=== PATIENT | female | born 1990 | race Caucasian/White ===

== ENCOUNTER 2019-07-08 21:27 | Inpatient (IN) | payer BC, OTHER ==
[2019-07-08] MEDS ORDERED: NORMAL SALINE 1000 ML 1,000 ML IV ONE ×2 (22:27→23:33)
[2019-07-08] MEDS ORDERED: KETOROLAC TROMETHAMINE INJ/PF 30 MG/1 ML SDV IV ONE (22:27)
--- NOTE | 2019-07-08 22:32 | ER Document Report ---
ED GI/ - General Chief Complaint: Flank Pain Stated Complaint: FLANK PAIN Time Seen by Provider: 07/08/19 22:14 Mode of Arrival: Ambulatory Information source: Patient, Parent, Friend Notes: This 28-year-old female patient comes emergency room complaining of right flank pain. She reports onset Wednesday evening of UTI symptoms consisting of suprapubic pressure, frequency, dysuria, and a cloudy urine. She did not seek treatment for this until Wednesday, yesterday. She did report night having some nausea vomiting sweating. Yesterday she started Macrodantin. She has been taking Tylenol and Motrin regularly, her last dose of Motrin was at 2 PM today, last Tylenol was at 6 PM today. She reports she has been having shaking chills and right flank pain. TRAVEL OUTSIDE OF THE [place] IN LAST 30 DAYS: No - Related Data Allergies/Adverse Reactions: No Known Allergies Allergy (Unverified 07/09/19 00:25) Past Medical History - General Information source: Patient, Parent, Friend - Social History Smoking Status: Never Smoker Cigarette use (# per day): No Chew tobacco use (# tins/day): No Smoking Education Provided: No Frequency of alcohol use: Occasional Drug Abuse: None Occupation: Student Lives with: Parents Family History: Reviewed & Not Pertinent Patient has suicidal ideation: No Patient has homicidal ideation: No - Medical History Medical History: Negative Surgical Hx: Negative Review of Systems - Review of Systems Constitutional: Chills, Fever EENT: No symptoms reported Cardiovascular: No symptoms reported Respiratory: No symptoms reported Gastrointestinal: See HPI, Nausea, Vomiting Genitourinary: Burning, Dysuria, Frequency, Flank pain, Urgency Female Genitourinary: Last menstrual period - 2 weeks ago, patient has the Mirena IUD Musculoskeletal: No symptoms reported Skin: No symptoms reported Hematologic/Lymphatic: No symptoms reported Neurological/Psychological: No symptoms reported Physical Exam - Vital signs Vitals: Temp Pulse Resp BP Pulse Ox 100.8 F H 128 H 16 150/113 H 99 07/08/19 21:40 07/08/19 21:40 07/08/19 21:40 07/08/19 21:40 07/08/19 21:40 Interpretation: Tachycardic, Febrile - General General appearance: Appears well, Alert In distress: None - HEENT Head: Normocephalic, Atraumatic Eyes: Normal Pupils: PERRL Neck: Normal - Respiratory Respiratory status: No respiratory distress Breath sounds: Normal - Cardiovascular Rhythm: Regular, Tachycardia Heart sounds: Normal auscultation Murmur: No - Abdominal Inspection: Morbidly Obese Bowel sounds: Normal Tenderness: Tender - Tenderness to palpate in the right upper quadrant of the abdomen. Mildly uncomfortable to palpate in the suprapubic region. - Back Back: CVA tenderness - Right CVA percussion tenderness - Extremities General upper extremity: Normal inspection General lower extremity: Normal inspection - Neurological Neuro grossly intact: Yes - Psychological Associated symptoms: Normal affect, Normal mood - Skin Skin Temperature: Warm Skin Moisture: Moist Skin Color: Normal Course - Vital Signs Vital signs: Temp Pulse Resp BP Pulse Ox 103.1 F H 128 H 23 H 123/67 97 07/08/19 22:27 07/08/19 21:40 07/09/19 00:01 07/09/19 00:01 07/09/19 00:01 - Laboratory Result Diagrams: 07/08/19 22:35 07/08/19 22:35 Laboratory results interpreted by me: 07/08/19 07/08/19 07/08/19 22:25 22:35 22:35 WBC 17.2 H Band Neutrophils % 2 L Lymphocytes % (Manual) 10 L Abs Neuts (Manual) 13.4 H Abs Monocytes (Manual) 1.9 H TSH 6.43 H Urine Protein 100 H Urine Ketones 20 H Urine Blood LARGE H Urine Nitrite POSITIVE H Urine Urobilinogen 4.0 H Ur Leukocyte Esterase MODERATE H - Diagnostic Test Radiology reviewed: Image reviewed, Reports reviewed - CT scan of abdomen pelvis without contrast shows edematous right kidney with perinephric stranding. There is no hydronephrosis or hydroureter. Discharge - Discharge Clinical Impression: Pyelonephritis, Tachycardia Leukocytosis Qualifiers: Leukocytosis type: bandemia Qualified Code(s): D72.825 - Bandemia Fever Qualifiers: Fever type: unspecified Qualified Code(s): R50.9 - Fever, unspecified Sepsis Qualifiers: Sepsis type: sepsis due to unspecified organism Sepsis acute organ dysfunction status: without acute organ dysfunction Qualified Code(s): A41.9 - Sepsis, unspecified organism Condition: Stable Disposition: ADMITTED INPATIENT Admitting Provider: Nuria (Hospitalist) Unit Admitted: Medical Floor
[2019-07-08] MEDS ORDERED: ACETAMINOPHEN 325 MG TABLET PO ONE (22:34)
[2019-07-08] MEDS ORDERED: CEFTRIAXONE 1 GM/D5W RTU 1 GM/50 ML RTUPB IV ONE (22:35)
[2019-07-08 22:45] LABS: APPEARANCE,URINE SLIGHTLY-CLOUDY; BILIRUBIN,URINE NEGATIVE (NEGATIVE); COLOR,URINE AMBER; GLUCOSE, URINE NEGATIVE (NEGATIVE); KETONES,URINE 20 mg/dL (NEGATIVE); LEUKOCYTE ESTERASE,URINE MODERATE (NEGATIVE); NITRITE,URINE POSITIVE (NEGATIVE); PROTEIN,URINE 100 mg/dL (NEGATIVE); URINE SPECIFIC GRAVITY 1.015
[2019-07-08 22:54] LABS: HEMATOCRIT 38.9 % (36.0-47.0); MEAN CORPUSCULAR HEMOGLOBIN 28.6 pg (27.0-33.4); MEAN CORPUSCULAR HGB CONC 33.5 g/dL (32.0-36.0); MEAN CORPUSCULAR VOLUME 86 fl (80-97); PLATELET COUNT 316 10^3/uL (150-450); RED BLOOD COUNT 4.56 10^6/uL (3.72-5.28); RED CELL DISTRIBUTION WIDTH 13.5 % (11.5-14.0); WHITE BLOOD COUNT 17.2 10^3/uL (4.0-10.5)
[2019-07-08] MEDS ORDERED: ONDANSETRON HCL INJ/PF 4 MG/2 ML SDV IV ONE (22:54)
[2019-07-08 23:05] LABS: ALKALINE PHOSPHATASE 82 U/L (38-126); ANION GAP 12 (5-19); ASPARTATE AMINO TRANSFERASE 20 U/L (14-36); BILIRUBIN,DIRECT 0.2 mg/dL (0.0-0.4); BILIRUBIN,TOTAL 0.5 mg/dL (0.2-1.3); BLOOD UREA NITROGEN 15 mg/dL (7-20); CALCIUM 9.4 mg/dL (8.4-10.2); CARBON DIOXIDE 23 mmol/L (22-30); CHLORIDE 103 mmol/L (98-107); CREATINE KINASE 83 U/L (30-135); GLUCOSE 107 mg/dL (75-110); POTASSIUM 3.8 mmol/L (3.6-5.0); TOTAL PROTEIN 6.8 g/dL (6.3-8.2)
[2019-07-08 23:19] LABS: ABSOLUTE LYMPHOCYTES# (MANUAL) 1.9 10^3/uL (0.5-4.7); ABSOLUTE MONOCYTES # (MANUAL) 1.9 10^3/uL (0.1-1.4); BAND NEUTROPHILS % (MANUAL) 2 % (3-5); BASOPHILS % (MANUAL) 0 % (0-2); EOSINOPHILS % (MANUAL) 0 % (0-6); LYMPHOCYTES % (MANUAL) 10 % (13-45); MONOCYTES % (MANUAL) 11 % (3-13); PLATELET COMMENT ADEQUATE; SEGMENTED NEUTROPHILS % (MAN) 76 % (42-78); TOTAL CELLS COUNTED 100
[2019-07-08 23:20] LABS: POIKILOCYTOSIS SLIGHT; STOMATOCYTES SLIGHT
[2019-07-08 23:22] LABS: FREE T3 4.6 pg/mL (2.77-5.27); FREE T4 (FREE THYROXINE) 1.3 ng/dL (0.78-2.19)
[2019-07-08 23:36] LABS: THYROID STIMULATING HORMONE 6.43 uIU/mL (0.47-4.68)
--- NOTE | 2019-07-09 00:17 | RADIOLOGY REPORT (SQ) ---
EXAM DESCRIPTION: CT ABDOMEN PELVIS WITHOUT IV CONTRAST COMPLETED DATE/TME: 07/08/2019 23:07 CLINICAL HISTORY: 28 years, Female, R flank pain, UTI, hematuria COMPARISON: None. TECHNIQUE: Axial CT images of the abdomen and pelvis were obtained without IV contrast. Sagittal and coronal reformats were performed. DL 1238 Images stored on PACS. All CT scanners at this facility use dose modulation, iterative reconstruction, and/or weight based dosing when appropriate to reduce radiation dose to as low as reasonably achievable (ALARA). [facility]: Dose Right [facility]: CareDose [facility]: Dose Right [facility]: Teradose 4D [facility]: [employer] LIMITATIONS: None. FINDINGS: The lung bases are clear. The liver is hypodense. The gallbladder, pancreas, spleen, and adrenal glands are unremarkable. The right kidney is mildly edematous with mild perinephric stranding. The left kidney appears unremarkable. No evidence of urolithiasis or hydronephrosis bilaterally. There is no intraperitoneal free air or fluid. There is no lymphadenopathy. The abdominal aorta is normal in caliber. The stomach, small bowel and appendix are unremarkable. The colon is incompletely distended. An IUD is noted. The urinary bladder and bilateral adnexa appear unremarkable. No acute fracture or subluxation. IMPRESSION: Mildly edematous right kidney with perinephric stranding. No evidence of urolithiasis or hydronephrosis bilaterally. This may be due to a recently passed stone or a UTI/pyelonephritis. Fatty liver. TECHNICAL DOCUMENTATION: Quality ID # 436: Final reports with documentation of one or more dose reduction techniques (e.g., Automated exposure control, adjustment of the mA and/or kV according to patient size, use of iterative reconstruction technique) copyright 2011 [employer]- All Rights Reserved
[2019-07-09] MEDS ORDERED: MAG HYDROX/AL HYDROX/SIMETH SUSP 30 ML UDCUP PO PRN (00:29)
[2019-07-09] MEDS ORDERED: ACETAMINOPHEN 650 MG SUPP.RECT PR PRN (00:29)
[2019-07-09] MEDS ORDERED: MAGNESIUM HYDROXIDE SUSP 30 ML UDCUP PO PRN (00:29)
[2019-07-09] MEDS ORDERED: ONDANSETRON HCL INJ/PF 4 MG/2 ML SDV IV PRN (00:29)
[2019-07-09] MEDS ORDERED: ZOLPIDEM TARTRATE 5 MG TABLET PO PRN (00:29)
--- NOTE | 2019-07-09 03:14 | PDOC H&P ---
History of Present Illness Admission Date/PCP: 07/09/19 00:06 GAGANDEEP ARAUJO, KRISTIE-C Patient complains of: Right flank pain, fever and chills with vomiting History of Present Illness: PARVEZ BHATT is a 28 year old female with history of Sharon's thy roiditis and thyroid nodules and noncompliance to medical therapy who presented to the emergency room with acute onset of urinary frequency with associated dysuria and urgency as well as suprapubic pressure. She was seen by her primary care physician on Wednesday night and was given Macrobid which she has been taking without significant improvement. Since night she started having back pain mainly in the right flank with associated fever and chills. She admits to vomiting. Upon presentation emergency room her temperature was 103.1 with pulse of 128 respiratory rate of 23 blood pressure 123/67 and pulse oximetry 97% on room air. Labs revealed significant leukocytosis 17.2 with neutrophilia and CMP was within normal. TSH was 6.43 with a free T4 of 1.3 and free T3 of 4.6. Urinalys is strongly positive for UTI. The patient was given a gram of IV Rocephin as well as hydration with IV normal saline and 15 mg of IV Toradol as well as 975 mg of p.o. Tylenol and 8 mg of IV Zofran.. She had urine and blood cultures drawn. The patient will be admitted to a medically monitored bed for further evaluation and management. Past Medical History Past Medical History: #1 Sharon's thyroiditis 2. Thyroid nodule 3. Noncompliance Past Surgical History Past Surgical History: Reports: Thyroidectomy Social History Lives with: Parents Smoking Status: Never Smoker Family History Family History: CAD, CVA, DM, Hypertension, Malignancy Parental Family History Reviewed: Yes Children Family History Reviewed: Yes Sibling(s) Family History Reviewed.: Yes Medication/Allergy Allergies/Adverse Reactions: No Known Allergies Allergy (Unverified 07/09/19 00:25) Review of Systems Review of Systems: As per history of present illness. All pertinent systems were reviewed above. Constitutional, HEENT, cardiovascular, respiratory, GI, , musculoskeletal, neuro, psychiatric, endocrine, integumentary and hematologic systems were reviewed and are otherwise negative/unremarkable except for positive findings mentioned above in the HPI. Physical Exam Vital Signs: Temp Pulse Resp BP Pulse Ox 103.1 F H 128 H 23 H 123/67 97 07/08/19 22:27 07/08/19 21:40 07/09/19 00:01 07/09/19 00:01 07/09/19 00:01 Intake & Output 07/07/19 07/08/19 07/09/19 06:59 06:59 06:59 Intake Total 1050 Balance 1050 Weight 159.9 kg Exam: Generally: Pleasant young obese female in mild distress from pain. Vital signs-as listed Head - atraumatic, normocephalic. Pupils - equal, round and reactive to light and accommodation. Extraocular movements are intact. No scleral icterus. Oropharynx - moist mucous membranes and tongue. No pharyngeal erythema or exudate. Neck - supple. No JVD. Carotid pulses 2+ bilaterally. No carotid bruits. No palpable thyromegaly or lymphadenopathy. Cardiovascular - regular rate and rhythm. Normal S1 and S2. No murmurs, gallops or rubs. Lungs - clear to auscultation bilaterally. Abdomen - soft and nontender. Positive bowel sounds. No palpable organomegaly or masses. She had mild right CVA tenderness Extremities - no pitting edema, clubbing or cyanosis. Neuro - grossly non-focal. Skin - no rashes. Breast, pelvic and rectal - deferred Results Laboratory Results: 07/08/19 22:35 07/08/19 22:35 07/08/19 07/08/19 07/08/19 22:25 22:35 22:35 WBC 17.2 H RBC 4.56 Hgb 13.0 Hct 38.9 MCV 86 MCH 28.6 MCHC 33.5 RDW 13.5 Plt Count 316 Seg Neutrophils % Not Reportable Lymphocytes % Not Reportable Monocytes % Not Reportable Eosinophils % Not Reportable Basophils % Not Reportable Absolute Neutrophils Not Reportable Absolute Lymphocytes Not Reportable Absolute Monocytes Not Reportable Absolute Eosinophils Not Reportable Absolute Basophils Not Reportable Sodium 138.4 Potassium 3.8 Chloride 103 Carbon Dioxide 23 Anion Gap 12 BUN 15 Creatinine 1.02 Est GFR ( Amer) > 60 Est GFR (Non-Af Amer) > 60 Glucose 107 Lactic Acid Calcium 9.4 Total Bilirubin 0.5 AST 20 Alkaline Phosphatase 82 Total Protein 6.8 Albumin 4.0 TSH Free T4 Free T3 pg/mL Urine Color JR Urine Appearance SLIGHTLY-CLOUDY Urine pH 6.0 Ur Specific [place] 1.015 Urine Protein 100 H Urine Glucose (UA) NEGATIVE Urine Ketones 20 H Urine Blood LARGE H Urine Nitrite POSITIVE H Ur Leukocyte Esterase MODERATE H Urine WBC (Auto) 52 Urine RBC (Auto) >182 07/08/19 07/08/19 22:35 22:35 WBC RBC Hgb Hct MCV MCH MCHC RDW Plt Count Seg Neutrophils % Lymphocytes % Monocytes % Eosinophils % Basophils % Absolute Neutrophils Absolute Lymphocytes Absolute Monocytes Absolute Eosinophils Absolute Basophils Sodium Potassium Chloride Carbon Dioxide Anion Gap BUN Creatinine Est GFR ( Amer) Est GFR (Non-Af Amer) Glucose Lactic Acid 1.0 Calcium Total Bilirubin AST Alkaline Phosphatase Total Protein Albumin TSH 6.43 H Free T4 1.30 Free T3 pg/mL 4.60 Urine Color Urine Appearance Urine pH Ur Specific [place] Urine Protein Urine Glucose (UA) Urine Ketones Urine Blood Urine Nitrite Ur Leukocyte Esterase Urine WBC (Auto) Urine RBC (Auto) 07/08/19 22:35 Creatine Kinase 83 Impressions: Abdomen/Pelvis CT 07/08/19 23:07 IMPRESSION: Mildly edematous right kidney with perinephric stranding. No evidence of urolithiasis or hydronephrosis bilaterally. This may be due to a recently passed stone or a UTI/pyelonephritis. Fatty liver. TECHNICAL DOCUMENTATION: Quality ID # 436: Final reports with documentation of one or more dose reduction techniques (e.g., Automated exposure control, adjustment of the mA and/or kV according to patient size, use of iterative reconstruction technique) copyright 2011 [employer]- All Rights Reserved Assessment and Plan - Diagnosis (1) Pyelonephritis Is this a current diagnosis for this admission?: Yes Plan: The patient will be admitted to medical monitor bed. She was placed on hydration with IV normal saline containing antibiotic therapy with IV Rocephin. Pain management will be provided. Urine culture sensitivity as well as blood cultures will be followed. (2) Sepsis Qualifiers: Sepsis type: sepsis due to unspecified organism Sepsis acute organ dysfunction status: without acute organ dysfunction Qualified Code(s): A41.9 - Sepsis, unspecified organism Is this a current diagnosis for this admission?: Yes Plan: The patient will be placed on IV Rocephin and follow urine and blood cultures. (3) Sharon's thyroiditis Is this a current diagnosis for this admission?: Yes Plan: The patient TSH was 6.43 with normal free T4 and free T3. (4) DVT prophylaxis Is this a current diagnosis for this admission?: Yes Plan: Sub cutaneous Lovenox - Time Time Spent with patient: 35 or more minutes Medications reviewed and adjusted accordingly: Yes Anticipated discharge: Home Within: within 72 hours - Inpatient Certification Based on my medical assessment, after consideration of the patient's comorbidities, presenting symptoms, or acuity I expect that the services needed warrant INPATIENT care.: Yes I certify that my determination is in accordance with my understanding of Medicare's requirements for reasonable and necessary INPATIENT services [42 CFR 412.3e].: Yes Medical Necessity: Need For IV Fluids, Need for Pain Control, Need for IV Antibiotics Post Hospital Care: D/C or Transfer Summary - Plan Summary Plan Summary: The plan of care was discussed in details with the patient. I answered all questions. The patient agreed to proceed with the above-mentioned plan. The patient is presumably full code. This note was created by [employer] dictating software and may contain typo errors that may have not been proofread.
[2019-07-09] MEDS: ACETAMINOPHEN 325 MG TABLET PO PRN ×3 (03:50→22:35)
[2019-07-09] MEDS: NORMAL SALINE 1000 ML 1,000 ML IV PRN ×2 (09:55→20:48)
[2019-07-09] MEDS: ENOXAPARIN SODIUM INJ 40 MG/0.4 ML DISP.SYRIN SUBCUT SCH (12:09)
--- NOTE | 2019-07-09 16:56 | PDOC PROGRESS REPORT ---
Subjective Progress Note for:: 07/09/19 Subjective:: Patient is a 28-year-old female with past medical history of Sharon's thyroiditis, medication noncompliance, and super morbid obesity who was admitted 07/08/2019 for sepsis secondary to pyelonephritis. Patient was seen on morning rounds. She is found resting in bed comfortably on room air. She tells me that she is feeling much better today. She does continue to have chills, though without documented fever, right flank pain, and fatigue. She reports that her pain is significantly improved from yesterday. She does have occasional dysuria. She denies chest pain, palpitations, dyspnea, cough, abdominal pain, nausea and vomiting. She has no new questions or concerns. No concerns per nursing. Reason For Visit: ACUTE PYELONEPHRITIS,SEPSIS Physical Exam Vital Signs: Temp Pulse Resp BP Pulse Ox 99.4 F 101 H 19 119/55 L 94 07/09/19 11:53 07/09/19 11:53 07/09/19 11:53 07/09/19 11:53 07/09/19 11:53 Intake & Output 07/08/19 07/09/19 07/10/19 06:59 06:59 06:59 Intake Total 1050 Output Total 650 Balance 1050 -650 Weight 165.2 kg General appearance: PRESENT: no acute distress, cooperative, morbidly obese, well-developed, well-nourished Head exam: PRESENT: atraumatic, normocephalic Eye exam: PRESENT: conjunctiva pink, EOMI, PERRLA. ABSENT: scleral icterus Ear exam: PRESENT: normal external ear exam Mouth exam: PRESENT: moist, tongue midline Neck exam: ABSENT: carotid bruit, JVD, lymphadenopathy, thyromegaly Respiratory exam: PRESENT: clear to auscultation ivelisse, symmetrical, unlabored. ABSENT: rales, rhonchi, wheezes Cardiovascular exam: PRESENT: RRR, +S1, +S2. ABSENT: diastolic murmur, rubs, systolic murmur Pulses: PRESENT: normal dorsalis pedis pul Vascular exam: PRESENT: normal capillary refill GI/Abdominal exam: PRESENT: normal bowel sounds, soft. ABSENT: distended, guarding, mass, organolmegaly, rebound, tenderness Rectal exam: PRESENT: deferred Gentrourinary exam: PRESENT: other - Right CVA tenderness Extremities exam: PRESENT: full ROM. ABSENT: calf tenderness, clubbing, pedal edema Neurological exam: PRESENT: alert, awake, oriented to person, oriented to place, oriented to time, oriented to situation, CN II-XII grossly intact. ABSENT: motor sensory deficit Psychiatric exam: PRESENT: appropriate affect, normal mood. ABSENT: homicidal ideation, suicidal ideation Skin exam: PRESENT: dry, intact, warm. ABSENT: cyanosis, rash Results Laboratory Results: 07/08/19 22:35 07/08/19 22:35 07/08/19 07/08/19 07/08/19 22:25 22:35 22:35 WBC 17.2 H RBC 4.56 Hgb 13.0 Hct 38.9 MCV 86 MCH 28.6 MCHC 33.5 RDW 13.5 Plt Count 316 Seg Neutrophils % Not Reportable Lymphocytes % Not Reportable Monocytes % Not Reportable Eosinophils % Not Reportable Basophils % Not Reportable Absolute Neutrophils Not Reportable Absolute Lymphocytes Not Reportable Absolute Monocytes Not Reportable Absolute Eosinophils Not Reportable Absolute Basophils Not Reportable Sodium 138.4 Potassium 3.8 Chloride 103 Carbon Dioxide 23 Anion Gap 12 BUN 15 Creatinine 1.02 Est GFR ( Amer) > 60 Est GFR (Non-Af Amer) > 60 Glucose 107 Lactic Acid Calcium 9.4 Total Bilirubin 0.5 AST 20 Alkaline Phosphatase 82 Total Protein 6.8 Albumin 4.0 TSH Free T4 Free T3 pg/mL Urine Color JR Urine Appearance SLIGHTLY-CLOUDY Urine pH 6.0 Ur Specific [place] 1.015 Urine Protein 100 H Urine Glucose (UA) NEGATIVE Urine Ketones 20 H Urine Blood LARGE H Urine Nitrite POSITIVE H Ur Leukocyte Esterase MODERATE H Urine WBC (Auto) 52 Urine RBC (Auto) >182 07/08/19 07/08/19 22:35 22:35 WBC RBC Hgb Hct MCV MCH MCHC RDW Plt Count Seg Neutrophils % Lymphocytes % Monocytes % Eosinophils % Basophils % Absolute Neutrophils Absolute Lymphocytes Absolute Monocytes Absolute Eosinophils Absolute Basophils Sodium Potassium Chloride Carbon Dioxide Anion Gap BUN Creatinine Est GFR ( Amer) Est GFR (Non-Af Amer) Glucose Lactic Acid 1.0 Calcium Total Bilirubin AST Alkaline Phosphatase Total Protein Albumin TSH 6.43 H Free T4 1.30 Free T3 pg/mL 4.60 Urine Color Urine Appearance Urine pH Ur Specific [place] Urine Protein Urine Glucose (UA) Urine Ketones Urine Blood Urine Nitrite Ur Leukocyte Esterase Urine WBC (Auto) Urine RBC (Auto) 07/08/19 22:35 Creatine Kinase 83 Impressions: Abdomen/Pelvis CT 07/08/19 23:07 IMPRESSION: Mildly edematous right kidney with perinephric stranding. No evidence of urolithiasis or hydronephrosis bilaterally. This may be due to a recently passed stone or a UTI/pyelonephritis. Fatty liver. TECHNICAL DOCUMENTATION: Quality ID # 436: Final reports with documentation of one or more dose reduction techniques (e.g., Automated exposure control, adjustment of the mA and/or kV according to patient size, use of iterative reconstruction technique) copyright 2011 [employer]- All Rights Reserved Assessment and Plan - Diagnosis (1) Pyelonephritis Is this a current diagnosis for this admission?: Yes Plan: Urinalysis is positive for UTI. CT ABD/Pelvis demonstrated mildly edematous right kidney with perinephric stranding. No evidence of hydro-ureter or hydronephrosis. Urine culture is pending. The patient will be admitted to medical monitor bed. Continue IVF. Continue antibiotic therapy with IV Rocephin. Analgesics and antiemetics as needed. (2) Sepsis Qualifiers: Sepsis type: sepsis due to unspecified organism Sepsis acute organ dysfunction status: without acute organ dysfunction Qualified Code(s): A41.9 - Sepsis, unspecified organism Is this a current diagnosis for this admission?: Yes Plan: Sepsis, due to UTI/pyelonephritis, present on admission, evidenced by fever, tachycardia, tachypnea, leukocytosis, and acutely ill appearance. Lactic acid is nml. Urinalysis is positive for UTI. Urine and blood cultures are pending. She received IV fluid bolus in ED She is empirically placed on IV Rocephin; will adjust as cultures result. Continue IVF (3) Sharon's thyroiditis Is this a current diagnosis for this admission?: Yes Plan: The patient TSH was 6.43 with normal free T4 and free T3. Patient is agreeable to resuming her prior levothyroxine dose. Begin Synthroid 50 mcg daily. (4) DVT prophylaxis Is this a current diagnosis for this admission?: Yes Plan: Sub cutaneous Lovenox - Time Time Spent with patient: 25-34 minutes Medications reviewed and adjusted accordingly: Yes Anticipated discharge: Home Within: within 72 hours
--- NOTE | 2019-07-09 16:56 | Progress Note Acknowledgement ---
Progress Note Acknowledgement Progess Note Acknowledgement: I, the undersigned member of the medical staff with appropriate privileges and with supervisory authority over Azucena Catalan, a [facility] practice allied health professional, acknowledge that I have reviewed the progress notes entered on this patient, and in my professional judgment believe that the assessment made and/or any care evidenced was appropriate
[2019-07-09] MEDS ORDERED: CEFTRIAXONE 1 GM/D5W RTU 1 GM/50 ML RTUPB IV SCH (22:00)
[2019-07-09] MEDS: CEFTRIAXONE SODIUM 1,000 MG in DEXTROSE 5%-WATER 50 ML IV SCH (22:34)
[2019-07-10 05:15] LABS: HEMATOCRIT 34.2 % (36.0-47.0); HEMOGLOBIN 11.3 g/dL (12.0-15.5); MEAN CORPUSCULAR HEMOGLOBIN 28.3 pg (27.0-33.4); MEAN CORPUSCULAR HGB CONC 33.1 g/dL (32.0-36.0); MEAN CORPUSCULAR VOLUME 86 fl (80-97); PLATELET COUNT 296 10^3/uL (150-450); RED BLOOD COUNT 3.99 10^6/uL (3.72-5.28); RED CELL DISTRIBUTION WIDTH 13.4 % (11.5-14.0); WHITE BLOOD COUNT 14.1 10^3/uL (4.0-10.5)
[2019-07-10 05:41] LABS: ANION GAP 9 (5-19); BLOOD UREA NITROGEN 11 mg/dL (7-20); CALCIUM 8.3 mg/dL (8.4-10.2); CARBON DIOXIDE 24 mmol/L (22-30); CHLORIDE 107 mmol/L (98-107); GLUCOSE 95 mg/dL (75-110); POTASSIUM 3.8 mmol/L (3.6-5.0)
[2019-07-10] MEDS: ACETAMINOPHEN 325 MG TABLET PO PRN ×3 (06:07→20:19)
[2019-07-10] MEDS: LEVOTHYROXINE SODIUM 0.05 MG TABLET PO SCH (06:07)
[2019-07-10] MEDS: NORMAL SALINE 1000 ML 1,000 ML IV PRN ×2 (07:42→18:21)
[2019-07-10] MEDS: ENOXAPARIN SODIUM INJ 40 MG/0.4 ML DISP.SYRIN SUBCUT SCH (10:24)
--- NOTE | 2019-07-10 15:41 | PDOC PROGRESS REPORT ---
Subjective Progress Note for:: 07/10/19 Subjective:: Patient is a 28-year-old female with past medical history of Sharon's thyroiditis, medication noncompliance, and super morbid obesity who was admitted 07/08/2019 for sepsis secondary to pyelonephritis. Patient was seen on morning rounds. She is found resting in bed comfortably on room air. She tells me that she is feeling much better today. Does continue to have right flank pain and fatigue. Fever of 101 overnight. Patient does confirm improved appetite today. She denies chest pain, palpitations, dyspnea, cough, abdominal pain, nausea and vomiting. She has no new questions or concerns. No concerns per nursing. Reason For Visit: ACUTE PYELONEPHRITIS,SEPSIS Physical Exam Vital Signs: Temp Pulse Resp BP Pulse Ox 98.3 F 76 16 139/50 H 96 07/10/19 11:19 07/10/19 11:19 07/10/19 11:19 07/10/19 11:19 07/10/19 11:19 Intake & Output 07/09/19 07/10/19 07/11/19 06:59 06:59 06:59 Intake Total 1050 2050 360 Output Total 650 Balance 1050 1400 360 Weight 165.2 kg 162.5 kg General appearance: PRESENT: no acute distress, cooperative, morbidly obese, well-developed, well-nourished Head exam: PRESENT: atraumatic, normocephalic Eye exam: PRESENT: conjunctiva pink, EOMI, PERRLA. ABSENT: scleral icterus Ear exam: PRESENT: normal external ear exam Mouth exam: PRESENT: moist, tongue midline Neck exam: ABSENT: carotid bruit, JVD, lymphadenopathy, thyromegaly Respiratory exam: PRESENT: clear to auscultation ivelisse, symmetrical, unlabored. ABSENT: rales, rhonchi, wheezes Cardiovascular exam: PRESENT: RRR. ABSENT: diastolic murmur, rubs, systolic murmur Pulses: PRESENT: normal dorsalis pedis pul Vascular exam: PRESENT: normal capillary refill GI/Abdominal exam: PRESENT: normal bowel sounds, soft. ABSENT: distended, guarding, mass, organolmegaly, rebound, tenderness Rectal exam: PRESENT: deferred Extremities exam: PRESENT: full ROM. ABSENT: calf tenderness, clubbing, pedal edema Neurological exam: PRESENT: alert, awake, oriented to person, oriented to place, oriented to time, oriented to situation, CN II-XII grossly intact. ABSENT: motor sensory deficit Psychiatric exam: PRESENT: appropriate affect, normal mood. ABSENT: homicidal ideation, suicidal ideation Skin exam: PRESENT: dry, intact, warm. ABSENT: cyanosis, rash Results Laboratory Results: 07/10/19 04:37 07/10/19 04:37 07/10/19 07/10/19 04:37 04:37 WBC 14.1 H RBC 3.99 Hgb 11.3 L Hct 34.2 L MCV 86 MCH 28.3 MCHC 33.1 RDW 13.4 Plt Count 296 Sodium 139.6 Potassium 3.8 Chloride 107 Carbon Dioxide 24 Anion Gap 9 BUN 11 Creatinine 0.93 Est GFR ( Amer) > 60 Est GFR (Non-Af Amer) > 60 Glucose 95 Calcium 8.3 L 07/08/19 22:19 Clean Catch Midstream Urine Culture - Final Mixed Urogenital Chrystal 07/08/19 22:35 Creatine Kinase 83 Impressions: Abdomen/Pelvis CT 07/08/19 23:07 IMPRESSION: Mildly edematous right kidney with perinephric stranding. No evidence of urolithiasis or hydronephrosis bilaterally. This may be due to a recently passed stone or a UTI/pyelonephritis. Fatty liver. TECHNICAL DOCUMENTATION: Quality ID # [id number]: Final reports with documentation of one or more dose reduction techniques (e.g., Automated exposure control, adjustment of the mA and/or kV according to patient size, use of iterative reconstruction technique) copyright 2011 [employer]- All Rights Reserved Assessment and Plan - Diagnosis (1) Pyelonephritis Is this a current diagnosis for this admission?: Yes Plan: Urinalysis is positive for UTI. WBCs trending down; T-max 101.2 last 24 hours. Decreased CVA tenderness, nausea, malaise today. CT ABD/Pelvis demonstrated mildly edematous right kidney with perinephric stranding. No evidence of hydro-ureter or hydronephrosis. Urine culture was negative; patient had been partially treated with p.o. abx as outpatient. The patient will be admitted to medical monitor bed. Continue IVF. Continue antibiotic therapy with IV Rocephin; continue until afebrile x 48 hrs Analgesics and antiemetics as needed. (2) Sepsis Qualifiers: Sepsis type: sepsis due to unspecified organism Sepsis acute organ dysfunction status: without acute organ dysfunction Qualified Code(s): A41.9 - Sepsis, unspecified organism Is this a current diagnosis for this admission?: Yes Plan: Improved; WBC trending down. TMax 101.2 last ngiht. HR, RR, and BP stable. Sepsis, due to UTI/pyelonephritis, present on admission, evidenced by fever, tachycardia, tachypnea, leukocytosis, and acutely ill appearance. Lactic acid is nml. Urinalysis is positive for UTI. Urine culture is negative Blood cultures are negative to date She received IV fluid bolus in ED She is empirically placed on IV Rocephin; will adjust as cultures result. Continue IVF (3) Sharon's thyroiditis Is this a current diagnosis for this admission?: Yes Plan: The patient TSH was 6.43 with normal free T4 and free T3. Patient is agreeable to resuming her prior levothyroxine dose. Continue Synthroid 50 mcg daily. (4) DVT prophylaxis Is this a current diagnosis for this admission?: Yes Plan: Sub cutaneous Lovenox
[2019-07-10] MEDS ORDERED: KETOROLAC TROMETHAMINE INJ/PF 30 MG/1 ML SDV IV PRN ×2 (20:54)
[2019-07-10] MEDS: CEFTRIAXONE SODIUM 1,000 MG in DEXTROSE 5%-WATER 50 ML IV SCH (22:21)
[2019-07-11 04:44] LABS: HEMATOCRIT 34.7 % (36.0-47.0); HEMOGLOBIN 11.4 g/dL (12.0-15.5); MEAN CORPUSCULAR HEMOGLOBIN 28.1 pg (27.0-33.4); MEAN CORPUSCULAR VOLUME 85 fl (80-97); PLATELET COUNT 286 10^3/uL (150-450); RED BLOOD COUNT 4.08 10^6/uL (3.72-5.28); RED CELL DISTRIBUTION WIDTH 13.5 % (11.5-14.0); WHITE BLOOD COUNT 8.1 10^3/uL (4.0-10.5)
[2019-07-11 05:05] LABS: ANION GAP 5 (5-19); BLOOD UREA NITROGEN 15 mg/dL (7-20); CALCIUM 8.3 mg/dL (8.4-10.2); CARBON DIOXIDE 27 mmol/L (22-30); CHLORIDE 108 mmol/L (98-107); GLUCOSE 105 mg/dL (75-110); POTASSIUM 4.2 mmol/L (3.6-5.0)
[2019-07-11] MEDS: LEVOTHYROXINE SODIUM 0.05 MG TABLET PO SCH (06:05)
[2019-07-11 08:22] VITALS: BP 140/74
--- NOTE | 2019-07-11 09:28 | Progress Note Acknowledgement ---
Progress Note Acknowledgement Progess Note Acknowledgement: I, the undersigned member of the medical staff with appropriate privileges and with supervisory authority over [Román Mixon], a dependent practice allied health professional, acknowledge that I have reviewed the progress notes entered on this patient, and in my professional judgment believe that the assessment made and/or any care evidenced was appropriate
--- NOTE | 2019-07-11 09:30 | PDOC DISCHARGE SUMMARY ---
General - Admit/Disc Date/PCP Admission Date/Primary Care Provider: 07/09/19 00:06 NOEMY CARRANZA Discharge Date: 07/11/19 - Additional Information Resuscitation Status: Full Code Discharge Diet: As Tolerated Discharge Activity: Activity As Tolerated Prescriptions: Levofloxacin [Levaquin 750 mg Tablet] 750 mg PO DAILY #10 tab Home Medications: Levofloxacin [Levaquin 750 mg Tablet] 750 mg PO DAILY #10 tab 07/11/19 History of Present Illness History of Present Illness: PARVEZ BHATT is a 28 year old female who was previous admitted for acute pyelonephritis. Hospital Course Hospital Course: Patient presented on 07/09/2019 with right flank pain fever and chills with vomiting. Patient was found to have an acute pyelonephritis. Patient was placed inpatient and IV Rocephin. Patient also has a history of Sharon's thy roiditis and thyroid nodules with noncompliance to medical therapy. Patient's blood cultures have been negative x48 hours and she showed great improvement at this time. Patient is afebrile for last 24 hours and white count has resolved. At this time patient will return home I will continue her on Levaquin 750 mg p.o. daily x10 days patient will follow-up with her primary care physician within 1 week. Physical Exam Vital Signs: Temp Pulse Resp BP Pulse Ox 98.1 F 70 18 140/74 H 96 07/11/19 08:00 07/11/19 08:00 07/11/19 08:00 07/11/19 08:00 07/11/19 08:00 Intake & Output 07/10/19 07/11/19 07/12/19 06:59 06:59 06:59 Intake Total 2050 1890 Output Total 650 Balance 1400 1890 Weight 162.5 kg General appearance: PRESENT: no acute distress, well-developed, well-nourished Head exam: PRESENT: atraumatic, normocephalic Eye exam: PRESENT: conjunctiva pink, EOMI, PERRLA. ABSENT: scleral icterus Ear exam: PRESENT: normal external ear exam Mouth exam: PRESENT: moist, tongue midline Neck exam: ABSENT: carotid bruit, JVD, lymphadenopathy, thyromegaly Respiratory exam: PRESENT: clear to auscultation ivelisse. ABSENT: rales, rhonchi, wheezes Cardiovascular exam: PRESENT: RRR. ABSENT: diastolic murmur, rubs, systolic murmur Pulses: PRESENT: normal dorsalis pedis pul Vascular exam: PRESENT: normal capillary refill GI/Abdominal exam: PRESENT: normal bowel sounds, soft. ABSENT: distended, guarding, mass, organolmegaly, rebound, tenderness Rectal exam: PRESENT: deferred Extremities exam: PRESENT: full ROM. ABSENT: calf tenderness, clubbing, pedal edema Neurological exam: PRESENT: alert, awake, oriented to person, oriented to place, oriented to time, oriented to situation, CN II-XII grossly intact. ABSENT: motor sensory deficit Psychiatric exam: PRESENT: appropriate affect, normal mood. ABSENT: homicidal ideation, suicidal ideation Skin exam: PRESENT: dry, intact, warm. ABSENT: cyanosis, rash Results Laboratory Results: 07/11/19 03:34 07/11/19 03:34 07/11/19 07/11/19 03:34 03:34 WBC 8.1 RBC 4.08 Hgb 11.4 L Hct 34.7 L MCV 85 MCH 28.1 MCHC 33.0 RDW 13.5 Plt Count 286 Sodium 140.3 Potassium 4.2 Chloride 108 H Carbon Dioxide 27 Anion Gap 5 BUN 15 Creatinine 1.09 Est GFR ( Amer) > 60 Est GFR (Non-Af Amer) > 60 Glucose 105 Calcium 8.3 L 07/08/19 22:35 Creatine Kinase 83 Impressions: Abdomen/Pelvis CT 07/08/19 23:07 IMPRESSION: Mildly edematous right kidney with perinephric stranding. No evidence of urolithiasis or hydronephrosis bilaterally. This may be due to a recently passed stone or a UTI/pyelonephritis. Fatty liver. TECHNICAL DOCUMENTATION: Quality ID # 436: Final reports with documentation of one or more dose reduction techniques (e.g., Automated exposure control, adjustment of the mA and/or kV according to patient size, use of iterative reconstruction technique) copyright 2011 [employer]- All Rights Reserved Qualifiers - * PATIENT BEING DISCHARGED WITH ANY OF THE FOLLOWING DIAGNOSIS: No Acute Heart Failure - Is this a Heart Failure Patient?: No Plan Time Spent: Greater than 30 Minutes
== END 2019-07-11 10:40 | disposition home or self-care (01) | DRG 690 ==
LOC: ER 21:27 → EH 07-09 00:06 → 5 07-09 02:15 → 2N 07-11 05:37
PROVIDERS: ADMIT Family Medicine; ATTEND Family Medicine
DX: N10 Acute pyelonephritis (principal); E06.3 Autoimmune thyroiditis; E66.01 Morbid (severe) obesity due to excess calories; Z91.19 Patient's noncompliance with other medical treatment and regimen; Z82.49 Family history of ischemic heart disease and other diseases of the circulatory system
CPT/HCPCS: 36415; 74176; 80048; 80053; 81001; 82550; 83605; 84439; 84443; 84481; 85025; 85027; 87040; 87086; 99285; J0696; J1650; J1885; J2405; J7030; J7060